=== PATIENT | female | born 1965 | race Caucasian/White ===

== ENCOUNTER → 2024-07-23 14:26 | Outpatient (REF) | payer OTHER, SELFPAY | LOC: RAD 14:26 | PROVIDERS: ATTENDING PHYSICIAN Physician Assistant Medical | DX: R07.81 Pleurodynia (principal); R10.11 Right upper quadrant pain; R10.9 Unspecified abdominal pain | CPT/HCPCS: 71111 ==

== ENCOUNTER → 2024-07-24 14:49 | Outpatient (REF) | payer OTHER, SELFPAY | LOC: HWRAD 14:49 | PROVIDERS: ATTENDING PHYSICIAN Physician Assistant Medical | DX: R07.81 Pleurodynia (principal); R10.11 Right upper quadrant pain; R10.9 Unspecified abdominal pain | CPT/HCPCS: 76700 ==

== ENCOUNTER 2024-08-21 09:00 | Emergency (ER) | payer OTHER, SELFPAY ==
[2024-08-21 09:03] VITALS: BP 156/94
[2024-08-21 12:21] VITALS: BP 152/82
--- NOTE | 2024-08-21 12:35 | ED.GENMED ---
History of Present Illness
General
Chief Complaint: Head Injury
Source: patient
Exam Limitations: none
Time Seen by Provider: 08/21/24 11:30
Nursing documentation reviewed up to this point in time: agreed with
History of Present Illness
History of Present Illness:
Patient is a 59 year-old female who presents to the emergency apartment for evaluation following head injury. Patient states she slipped and fell in the bathroom while at a neighbors for a [employer] on Tuesday evening, striking her head.
She believes that she may have lost consciousness as she does not remember the fall or the events immediately following the fall.
She states that she had one episode of vomiting following the head strike on Tuesday night and has had some lingering nausea, photosensitivity, and dull headache.
Patience denies any double vision, neck pain, ataxia, dysarthria.
Patient does say that symptoms are improving somewhat however, given persistent nausea she came to the emergency appointment for evaluation.
Patient is not on any anticoagulation. No other injuries or concerns today.
Review of Systems
Review of Systems
Allergies reviewed?: Yes
All Other Systems: ROS reviewed and negative except as documented in HPI and ROS
Phy Exam
Physical Exam
Physical Exam:
Vitals: Hypertensive, otherwise vital signs stable. Afebrile
General: Patient is well appearing, no acute distress
Skin: Warm and dry, no rashes or lesions
Head: Normocephalic, healing contusion to right frontal scalp
Eyes: Sclera nonicteric. EOMs intact. No entrapment. No nystagmus. ecchymosis of right infraorbital region. No periorbital tenderness.
Throat: Protecting airway
Neck: Normal ROM, no cervical spine tenderness, no meningismus
Cardiac: Regular rate and rhythm, no murmurs.
Pulm: Normal respiratory effort, no wheezes, rales, rhonchi heard on exam
.
Abdomen: No abdominal tenderness.
Extremities: No evidence of cyanosis or edema
Neuro: AAOx3. CN II-XII grossly intact on examination. Normal finger to nose. Steady gait. No focal neurologic deficits.
Psychiatric: Normal affect.
Course
Orders/Labs/Results
Orders:
Orders
08/21/24 09:09
CT Head W/o Iv Contrast Urgent
Comment:
Reason For Exam: fall
Vital Signs
Initial and Last Documented VS:
Initial Vital Signs
Temp Pulse Resp BP Pulse Ox
98.4 F 80 16 156/94 98
08/21/24 09:03 08/21/24 09:03 08/21/24 09:03 08/21/24 09:03 08/21/24 09:03
Last Documented Vital Signs
Temp Pulse Resp BP Pulse Ox
98.4 F 72 16 152/82 99
08/21/24 09:03 08/21/24 12:21 08/21/24 12:21 08/21/24 12:21 08/21/24 12:35
MDM/Problems Addressed
Differential Diagnosis Includes:
Not limited to: Contusion, concussion, intracerebral hemorrhage, skull fracture, etc
MDM/Problems Addressed:
59 year old female, not on any anticoagulation presenting 4 days following head injury with persistent dull headache and nausea, as well as photophobia. Vitals stable. On exam � patient A & O x3 without any focal neurologic deficits. She has a
normal cerebellar exam. A healing contusion noted to right frontal scalp with some dependent ecchymosis in right periorbital area. No tenderness of periorbital region or evidence of entrapment. Facial bones nontender. C spine without any
tenderness and full range of motion. CT scan was obtained without any acute traumatic abnormalities.
Ultimately suspect concussion. Patient is overall very well appearing and neurologically intact. Feel stable for discharge home with supportive care and primary care Follow up. Strict return precautions discussed. Patient comfort with plan.
Chronic conditions affecting care:
N/A
Acute Exacerbation and/or Progression of Chronic Illness:
N/A
*Radiology
Radiology exam reviewed: radiology read reviewed
*Pulse Oximetry
SaO2: 99
Oxygen Mode of Delivery: Room air
Patient hypoxic: no
*EKG
Interpreted by ED Provider?: NA
*Hyster Driver Interpretation
Rate: Hyster Driver- N/A
*Critical Care Note
Total Time (30-74mins, 75-104mins- exclusive of procedures): Not Applicable
ED Attending Note
-
Portions of this chart may have been created with voice recognition software.� Occasional wrong word or��sound alike� substitutions may have occurred due to the inherent limitations of voice recognition software.
Discharge Plan
Departure
Patient Disposition: Home (Routine Discharge)
Date of Disposition: 08/21/24
Time of Disposition: 12:15
Patient with high blood pressure during this ER visit?: Yes
Condition: Good
Discharge Problem:
Concussion
Instructions: Concussion, Adult (DC), BLOOD PRESSURE
Referrals:
Mejia Goldstein PA-C [Family Provider, Family Practice] - Follow up in 5-7 days
Stand Alone Forms: Return to Work
Activity Restrictions/Additional Instructions:
RETURN TO THE EMERGENCY DEPARTMENT WITH ANY SEVERE HEADACHE OR NECK PAIN, INTRACTABLE NAUSEA/VOMITING, VISUAL CHANGES, PERSISTENT DIZZINESS OR LIGHTHEADEDNESS, DIFFICULTY WITH SPEECH OR BALANCE, CHANGES IN MENTAL STATUS, OR ANY OTHER CONCERNS
- As discussed�your CT scan of your head showed no acute intracranial abnormalities. You likely sustained a concussion.
- It is important to get plenty of rest and stay well-hydrated. Limit screen time. Take Tylenol and/or Motrin for headaches.
- Follow-up with your primary care for further evaluation/management to ensure your symptoms are improving
Monitor your symptoms closely and return to the emergency department with any acute worsening/new symptoms or any other concerns
Interventions
Interventions:
*Risk Screen - Suicide Last Done: 08/21/24 09:03
*General Assessment Last Done: 08/21/24 12:03
*Neglect/Abuse Screening Last Done: 08/21/24 09:03
*ED- Fall Risk Assessment Last Done: 08/21/24 12:03
*Nursing Disposition Last Done: 08/21/24 12:21
ED- Neurological Assessment Last Done: 08/21/24 12:02
ED-Skin Assessment Last Done: 08/21/24 12:02
Discharge Date and Time
Discharge Date/Time: 08/21/24 12:32
Print Language: TURKISH
== END 2024-08-21 12:32 | disposition home or self-care (01) ==
LOC: EMR 09:00
PROVIDERS: EMERGENCY PHYSICIAN Student in an Organized Health Care Education/Training Program; FAMILY PHYSICIAN Physician Assistant Medical
DX: S06.0XAA Concussion with loss of consciousness status unknown, initial encounter (principal); W01.0XXA Fall on same level from slipping, tripping and stumbling without subsequent striking against object, initial encounter
CPT/HCPCS: 99284; 70450